=== PATIENT | male | born 1970 | race Caucasian/White ===

== ENCOUNTER 2019-04-25 09:35 | Day surgery (SDC) | payer MEDICAID ==
[~2019-04-25] VITALS: Ht 177.8 cm; Wt 83.9 kg
[2019-04-25] MEDS ORDERED: fentaNYL 0.05 MG/ML VIAL ONE (11:24)
[2019-04-25] MEDS ORDERED: LIDOCAINE 2% 100 MG/5 ML UJET TP ONE (11:24)
== END 2019-04-25 12:35 | disposition home or self-care (01) ==
LOC: MDS 09:35 → MMU 09:36 → MDS 12:35
PROVIDERS: ATTEND Internal Medicine Gastroenterology
DX: Z12.11 Encounter for screening for malignant neoplasm of colon (principal); K57.30 Diverticulosis of large intestine without perforation or abscess without bleeding; E11.9 Type 2 diabetes mellitus without complications; E66.9 Obesity, unspecified; Z68.30 Body mass index [BMI] 30.0-30.9, adult
CPT/HCPCS: 45378; J3010